=== PATIENT | female | born 1980 | race Hispanic/Latino ===

== ENCOUNTER 2022-05-26 14:42 | Emergency (ER) | payer OTHER ==
[~2022-05-26] VITALS: Ht 165.1 cm; Wt 86.2 kg
[2022-05-26] MEDS ORDERED: ACETAMINOPHEN 325 MG TAB PO ONE (15:00)
[2022-05-26] MEDS ORDERED: IBUPROFEN 600 MG TAB PO STA (15:00)
[2022-05-26] MEDS ORDERED: IBUPROFEN 400 MG TAB PO ONE (15:15)
[2022-05-26] MEDS ORDERED: IBUPROFEN 400 MG TAB ONE (15:16)
[2022-05-26] MEDS ORDERED: IBUPROFEN600 MG PO (17:15)
[2022-05-26] MEDS ORDERED: TAMIFLU75 MG PO (17:15)
== END 2022-05-26 17:36 | disposition home or self-care (01) ==
LOC: ER 14:46
DX: R50.9 Fever, unspecified (principal); J10.1 Influenza due to other identified influenza virus with other respiratory manifestations; Z20.822 Contact with and (suspected) exposure to COVID-19
CPT/HCPCS: 71046; 99284; U0002